=== PATIENT | male | born 1945 | race Caucasian/White ===

== ENCOUNTER 2017-09-04 12:26 | Day surgery (SDC) | payer MEDICARE ==
[2017-09-04] MEDS ORDERED: LIDOCAINE 2% MDV (20MG/ML) 20ML VIAL IV ONE (12:27)
[2017-09-04] MEDS ORDERED: PROPOFOL 10 MG/ML VIAL IV ONE (12:27)
--- NOTE | 2017-09-05 12:20 | Operative Note ---
DATE OF SURGERY: 09/04/2017 OPERATION: COLONOSCOPY with cold forceps and cold snare polypectomies. PREOPERATIVE DIAGNOSIS: Personal history of colon polyps. POSTOPERATIVE DIAGNOSIS: Sigmoid diverticulosis and ascending colon polyps. PROCEDURE: After informed consent was obtained from the patient, he was placed in the left lateral decubitus position in the endoscopy suite, sedated and monitored by the department of anesthesia. Digital rectal exam was unremarkable. A well-lubricated JTZ212 colonoscope was inserted into the rectum and advanced to the cecum. Preparation quality was good. The cecum, ileocecal valve, and appendiceal orifice were unremarkable. The ascending colon revealed 4 sessile polyps ranging in size from 3-5 mm, 2 removed with a cold forceps and 2 removed with a cold snare with minimal bleeding noted at the sites. The transverse colon and descending colon were unremarkable. The sigmoid colon did reveal scattered diverticula. The rectum was unremarkable in forward and in J-turn views. The endoscope was straightened, the rectal ampulla deflated, and the endoscope was removed. RECOMMENDATIONS: The patient should resume his medications and diet. I would suggest a high-fiber diet and a fiber supplement such as Citrucel or Benefiber. A repeat colonoscopy in 3-5 years will be performed pending tissue histology. As always, thank you for allowing me to participate in the healthcare of your patients. CC: TENZIN FERRIS D.O. ANGEL
== END 2017-09-04 14:20 | disposition home or self-care (01) ==
LOC: HOP 12:26
PROVIDERS: ATTEND Internal Medicine Gastroenterology
DX: Z86.010 Personal history of colon polyps (principal); D12.2 Benign neoplasm of ascending colon; K57.30 Diverticulosis of large intestine without perforation or abscess without bleeding; E78.00 Pure hypercholesterolemia, unspecified